=== PATIENT | male | born 1955 | race Caucasian/White ===

== ENCOUNTER 2017-03-17 10:51 | Emergency (ER) | payer BC ==
[~2017-03-17] VITALS: Ht 182.9 cm; Wt 110.0 kg
[~2017-03-17 10:51] MED LIST: AUGM875T PO; PRED20 PO
[2017-03-17 10:53] VITALS: BP 137/92; PULSE 114; RESP 16; TEMP 98.7; O2SAT 94
[2017-03-17] MEDS ORDERED: SODIUM CHLOR 0.9% 1000 ML INJ 1,000 ML IV SCH (11:24)
[2017-03-17 11:28] VITALS: O2SAT 99
[2017-03-17] MEDS ORDERED: ONDANSETRON HCL 4 MG/2 ML VIAL IVP ONE (11:30)
[2017-03-17] MEDS ORDERED: MORPHINE SULFATE 4 MG/ML INJ IV PUSH ONE (11:30)
[2017-03-17] MEDS ORDERED: SODIUM CHLORIDE 0.9% FLUSH 10 ML FLUSH IV FLUSH PRN (11:30)
--- NOTE | 2017-03-17 11:36 | PD ---
HPI Chief Complaint: Abdominal Pain Time Seen by Provider: 11:17 Travel History International Travel<30 days: No Contact w/Intl Traveler<30days: No Traveled to known affect area: No History of Present Illness HPI The patient is a 61-year-old male who presents to the emergency department for abdominal pain and abnormal outpatient CT of the abdomen and pelvis. The patient's symptoms started last week with mild perirectal pain he thought was initially hemorrhoids. The patient used sitz baths, Preparation H, and a stool softener. The perirectal pain improved, however, after using the stool softeners he developed some bilateral lower abdominal pain which eventually migrated to the right upper quadrant. The patient was seen at an outpatient urgent care center and was ordered an outpatient CT the abdomen and pelvis. The patient had a CT performed at radiology [facility] which revealed an area of ill-defined attenuation within the mesenteric fat with swirling of vessels consistent with an area of or mental fat infarct. The patient does complain of right upper quadrant abdominal pain that he describes as a "bellyache ". He denies any nausea, vomiting, or change in bowel habits. He had 2 normal bowel movements earlier today. He denies any previous abdominal surgeries. He does have a history of hypertension. [facility] Past Medical History Narrative Medical Hypertension Past Surgical History Surgical History: No Previous Surgery Social History Tobacco Use: No Allergies-Medications (Allergen,Severity, Reaction): Coded Allergies: azithromycin (Unverified Allergy, Unknown, 03/17/17) Reported Meds & Prescriptions Reported Meds & Active Scripts Active Augmentin (Amoxicillin-Clavulanate) 875-125 mg Tab 875 Mg PO BID not for use in CrCl <30 ml/min. Prednisone 20 Mg Tab 40 Mg PO DAILY Take 40 mg (2 tablets) daily for 5 days Review of Systems Except as stated in HPI: all other systems reviewed are Neg General / Constitutional: No: Fever Cardiovascular: No: Chest Pain or Discomfort Respiratory: No: Shortness of Breath Gastrointestinal: Positive: Abdominal Pain, No: Nausea, Vomiting, Diarrhea, Constipation, Changes in Bowel Habits Genitourinary: No: Dysuria Musculoskeletal: No: Myalgias, Arthralgias Physical Exam Narrative GENERAL: Awake, alert, pleasant 61-year-old male who appears his stated age and is in no acute respiratory distress. SKIN: Focused skin assessment warm/dry. HEAD: Atraumatic. Normocephalic. EYES: Pupils equal and round. No scleral icterus. No injection or drainage. ENT: No nasal bleeding or discharge. Mucous membranes pink and moist. NECK: Trachea midline. No JVD. CARDIOVASCULAR: Regular rate and rhythm. No murmur appreciated. RESPIRATORY: No accessory muscle use. Clear to auscultation. Breath sounds equal bilaterally. GASTROINTESTINAL: Abdomen soft, mild right upper quadrant tenderness, but no guarding or rigidity. Rectal: No visible external hemorrhoid. No visible blood. MUSCULOSKELETAL: No obvious deformities. No clubbing. No cyanosis. No edema. NEUROLOGICAL: Awake and alert. No obvious cranial nerve deficits. Motor grossly within normal limits. Normal speech. PSYCHIATRIC: Appropriate mood and affect; insight and judgment normal. Data Data Last Documented VS Vital Signs Date Time Temp Pulse Resp B/P (MAP) Pulse Ox O2 Delivery O2 Flow Rate FiO2 03/17/17 15:00 86 16 114/67 (83) 98 Room Air 03/17/17 10:53 98.7 Orders Orders Complete Blood Count With Diff (03/17/17 11:24) Comprehensive Metabolic Panel (03/17/17 11:24) Lipase (03/17/17 11:24) Lactic Acid (03/17/17 11:24) Iv Access Insert/Monitor (03/17/17 11:24) Ecg Monitoring (03/17/17 11:24) Oximetry (03/17/17 11:24) Morphine Inj (Morphine Inj) (03/17/17 11:30) Ondansetron Inj (Zofran Inj) (03/17/17 11:30) Sodium Chlor 0.9% 1000 Ml Inj (Ns 1000 M (03/17/17 11:24) Sodium Chloride 0.9% Flush (Ns Flush) (03/17/17 11:30) Diet Regular Basic (03/17/17 Lunch) Diet Regular Basic (03/17/17 Dinner) Labs Laboratory Tests Test 03/17/17 11:35 White Blood Count 13.9 TH/MM3 Red Blood Count 5.90 MIL/MM3 Hemoglobin 17.1 GM/DL Hematocrit 51.2 % Mean Corpuscular Volume 86.7 FL Mean Corpuscular Hemoglobin 29.0 PG Mean Corpuscular Hemoglobin Concent 33.4 % Red Cell Distribution Width 14.8 % Platelet Count 312 TH/MM3 Mean Platelet Volume 7.5 FL Neutrophils (%) (Auto) 78.0 % Lymphocytes (%) (Auto) 12.5 % Monocytes (%) (Auto) 8.1 % Eosinophils (%) (Auto) 1.0 % Basophils (%) (Auto) 0.4 % Neutrophils # (Auto) 10.9 TH/MM3 Lymphocytes # (Auto) 1.7 TH/MM3 Monocytes # (Auto) 1.1 TH/MM3 Eosinophils # (Auto) 0.1 TH/MM3 Basophils # (Auto) 0.1 TH/MM3 CBC Comment DIFF FINAL Differential Comment Blood Urea Nitrogen 12 MG/DL Creatinine 1.00 MG/DL Random Glucose 91 MG/DL Total Protein 8.2 GM/DL Albumin 3.7 GM/DL Calcium Level 9.0 MG/DL Alkaline Phosphatase 53 U/L Aspartate Amino Transf (AST/SGOT) 18 U/L Alanine Aminotransferase (ALT/SGPT) 38 U/L Total Bilirubin 1.2 MG/DL Sodium Level 136 MEQ/L Potassium Level 4.1 MEQ/L Chloride Level 103 MEQ/L Carbon Dioxide Level 25.1 MEQ/L Anion Gap 8 MEQ/L Estimat Glomerular Filtration Rate 76 ML/MIN Lactic Acid Level 0.8 mmol/L Lipase 135 U/L MDM Medical Decision Making Medical Screen Exam Complete: Yes Emergency Medical Condition: Yes Medical Record Reviewed: Yes Interpretation(s) Laboratory Tests Test 03/17/17 11:35 White Blood Count 13.9 TH/MM3 Red Blood Count 5.90 MIL/MM3 Hemoglobin 17.1 GM/DL Hematocrit 51.2 % Mean Corpuscular Volume 86.7 FL Mean Corpuscular Hemoglobin 29.0 PG Mean Corpuscular Hemoglobin Concent 33.4 % Red Cell Distribution Width 14.8 % Platelet Count 312 TH/MM3 Mean Platelet Volume 7.5 FL Neutrophils (%) (Auto) 78.0 % Lymphocytes (%) (Auto) 12.5 % Monocytes (%) (Auto) 8.1 % Eosinophils (%) (Auto) 1.0 % Basophils (%) (Auto) 0.4 % Neutrophils # (Auto) 10.9 TH/MM3 Lymphocytes # (Auto) 1.7 TH/MM3 Monocytes # (Auto) 1.1 TH/MM3 Eosinophils # (Auto) 0.1 TH/MM3 Basophils # (Auto) 0.1 TH/MM3 CBC Comment DIFF FINAL Differential Comment Blood Urea Nitrogen 12 MG/DL Creatinine 1.00 MG/DL Random Glucose 91 MG/DL Total Protein 8.2 GM/DL Albumin 3.7 GM/DL Calcium Level 9.0 MG/DL Alkaline Phosphatase 53 U/L Aspartate Amino Transf (AST/SGOT) 18 U/L Alanine Aminotransferase (ALT/SGPT) 38 U/L Total Bilirubin 1.2 MG/DL Sodium Level 136 MEQ/L Potassium Level 4.1 MEQ/L Chloride Level 103 MEQ/L Carbon Dioxide Level 25.1 MEQ/L Anion Gap 8 MEQ/L Estimat Glomerular Filtration Rate 76 ML/MIN Lactic Acid Level 0.8 mmol/L Lipase 135 U/L Differential Diagnosis Differential diagnosis includes omental fat infarct, cholecystitis, choledocholithiasis, hernia, medication side effect from stool softener, viral syndrome. Narrative Course IV was established, labs are drawn and sent, and the patient was placed on cardiac telemetry monitoring and continuous pulse oximetry monitoring. Lactic acid and white count were sent to lab. I reviewed the patient's [facility] imaging CT report which does show a focal area of mesenteric fat herniation seen superior and anterior to the dome of the liver and displacing the diaphragm superiorly. There is an area of ill-defined attenuation within the mesenteric fat with swirling of vessels consistent with an area of omental fat infarct. White count was mildly elevated at 13.9. Lactic acid is normal. The patient was evaluated by the [facility] for Dr. Meza, Dr. Meza then evaluated the patient at 3:40 PM at bedside who states the patient can follow- up as an outpatient. He was able to tolerate an oral challenge with a meal, his pain has significantly improved, he will follow up outpatient with general surgery. Diagnosis Primary Impression: Abdominal pain Qualified Codes: R10.11 - Right upper quadrant pain Additional Impression: Mesenteric infarction Referrals: Al Meza MD Patient Instructions: General Instructions Additional Instructions: [place] as needed for pain. Follow-up with Dr. Meza as directed by Dr. Meza when evaluated in the emergency department. Return if symptoms worsen or progress. Med/Other Pt SpecificInfo: Prescription(s) given Scripts Hydrocodone-Acetaminophen ([place]) 5 Mg-325 Mg Tab 1 TAB PO Q6H Y for PAIN, #12 TAB 0 Refills Prov: Jesse Sweeney MD 03/17/17 Disposition: 01 DISCHARGE HOME Condition: Stable Jesse Sweeney MD Mar 17, 2017 11:36
[2017-03-17 12:10] LABS: AUTOMATED NEUTROPHIL # 10.9 TH/MM3 (1.8-7.7); BASOPHIL # 0.1 TH/MM3 (0-0.2); BASOPHIL % 0.4 % (0.0-2.0); EOSINOPHIL # 0.1 TH/MM3 (0-0.4); HEMATOCRIT 51.2 % (39.0-51.0); HEMOGLOBIN 17.1 GM/DL (13.0-17.0); LYMPH % 12.5 % (9.0-44.0); LYMPHOCYTE # 1.7 TH/MM3 (1.0-4.8); MEAN CELL VOLUME 86.7 FL (80.0-100.0); MEAN CORPUSCULAR HGB CONC 33.4 % (32.0-36.0); MEAN PLATELET VOLUME 7.5 FL (7.0-11.0); MONO % 8.1 % (0.0-8.0); MONOCYTE # 1.1 TH/MM3 (0-0.9); PLATELET COUNT 312 TH/MM3 (150-450); RED CELL DISTRIBUTION WIDTH 14.8 % (11.6-17.2); WHITE BLOOD COUNT 13.9 TH/MM3 (4.0-11.0)
[2017-03-17 12:23] LABS: ALBUMIN 3.7 GM/DL (3.4-5.0); AST (GOT) 18 U/L (15-37); BICARBONATE 25.1 MEQ/L (21.0-32.0); BLOOD UREA NITROGEN 12 MG/DL (7-18); CHLORIDE 103 MEQ/L (98-107); GLOMERULAR FILTRATION RATE 76 ML/MIN (>89); GLUCOSE,RANDOM 91 MG/DL (74-106); LIPASE 135 U/L (73-393); SODIUM (NA) 136 MEQ/L (136-145)
[2017-03-17 12:26] LABS: ALKALINE PHOSPHATASE 53 U/L (45-117); ALT (GPT) 38 U/L (12-78); TOTAL BILIRUBIN ADULT 1.2 MG/DL (0.2-1.0); TOTAL PROTEIN 8.2 GM/DL (6.4-8.2)
[2017-03-17 15:00] VITALS: BP 114/67; PULSE 86; RESP 16; O2SAT 98
[2017-03-17] MEDS ORDERED: NORC5TAB PO (15:53)
--- NOTE | 2017-03-17 17:19 | PD.CONS ---
cc: Al Meza MD [facility] Service General Surgery Consult Requested By Dr. Sweeney Reason for Consult Evaluation of CT findings of mesenteric fat herniation Primary Care Physician No Primary Care Physician History of Present Illness This is a 61-year-old male with a past medical history of hypertension. The patient reports that starting Friday of last week he started having perirectal pain and contributed to hemorrhoids. He has had a similar type pain before with success of using a sitz bath and Preparation H. On Friday he noticed he had not had a bowel movement in several days and started to feel slightly bloated. He started taking laxatives on Friday and started having lower bilateral pelvic pain. Over the next 2 days he did not feel well and ate small , bland meals. On Friday, he developed right upper quadrant pain. Today he went to an outpatient urgent care center where a CT abdomen and pelvis was obtained which showed an focal area of mesenteric fat herniation. He was sent to the Emergency Room. He reports the pain as a dull type pain and rates it about a 3 out of 10. He was given IV morphine in the Emergency Department with complete resolution of abdominal pain. He feels hungry. A General Surgery consultation has been requested. Review of Systems Constitutional: DENIES: Fatigue, Weight loss, Change in appetite Endocrine: DENIES: Polydipsia, Polyuria, Polyphagia Eyes: DENIES: Diplopia, Eye inflammation Ears, nose, mouth, throat: DENIES: Hearing loss Respiratory: DENIES: Cough, Snoring Cardiovascular: DENIES: Palpitations Gastrointestinal: COMPLAINS OF: Abdominal pain, DENIES: Nausea, Vomiting Genitourinary: DENIES: Urinary frequency Musculoskeletal: DENIES: Joint pain Integumentary: DENIES: Abnormal pigmentation Hematologic/lymphatic: DENIES: Bruising Immunologic/allergic: DENIES: Eczema Neurologic: DENIES: Abnormal gait, Headache Psychiatric: DENIES: Confusion, Mood changes Past Family Social History Past Medical History Hypertension Past Surgical History None Reported Medications Lisinopril Testosterone therapy Allergies: Coded Allergies: azithromycin (Unverified Allergy, Unknown, 03/17/17) Family History Noncontributory Social History Denies tobacco use Denies EtOH use Denies illicit drug use From [place] --- has a second home in [place] [facility] Owns his own business Physical Exam Vital Signs Vital Signs Date Time Temp Pulse Resp B/P (MAP) Pulse Ox O2 Delivery O2 Flow Rate FiO2 03/17/17 16:03 03/17/17 15:00 86 16 114/67 (83) 98 Room Air 03/17/17 11:48 18 03/17/17 11:28 99 Room Air 03/17/17 11:19 18 03/17/17 10:53 98.7 114 16 137/92 (107) 94 Physical Exam GENERAL: 61 year old male resting in bed in no acute distress. SKIN: Warm and dry. HEAD: Atraumatic. Normocephalic. EYES: Pupils equal and round. No scleral icterus. No injection or drainage. ENT: No nasal bleeding or discharge. Mucous membranes pink and moist. NECK: Trachea midline. CARDIOVASCULAR: Regular rate and rhythm. RESPIRATORY: No accessory muscle use. Clear to auscultation. Breath sounds equal bilaterally. GASTROINTESTINAL: Abdomen soft, non-tender, nondistended. No visible scars or hernias. MUSCULOSKELETAL: Extremities without clubbing, cyanosis, or edema. No obvious deformities. NEUROLOGICAL: Awake and alert. No obvious cranial nerve deficits. Motor grossly within normal limits. Five out of 5 muscle strength in the arms and legs. Normal speech. PSYCHIATRIC: Appropriate mood and affect; insight and judgment normal. Laboratory Laboratory Tests Test 03/17/17 11:35 White Blood Count 13.9 Red Blood Count 5.90 Hemoglobin 17.1 Hematocrit 51.2 Mean Corpuscular Volume 86.7 Mean Corpuscular Hemoglobin 29.0 Mean Corpuscular Hemoglobin Concent 33.4 Red Cell Distribution Width 14.8 Platelet Count 312 Mean Platelet Volume 7.5 Neutrophils (%) (Auto) 78.0 Lymphocytes (%) (Auto) 12.5 Monocytes (%) (Auto) 8.1 Eosinophils (%) (Auto) 1.0 Basophils (%) (Auto) 0.4 Neutrophils # (Auto) 10.9 Lymphocytes # (Auto) 1.7 Monocytes # (Auto) 1.1 Eosinophils # (Auto) 0.1 Basophils # (Auto) 0.1 CBC Comment DIFF FINAL Differential Comment Blood Urea Nitrogen 12 Creatinine 1.00 Random Glucose 91 Total Protein 8.2 Albumin 3.7 Calcium Level 9.0 Alkaline Phosphatase 53 Aspartate Amino Transf (AST/SGOT) 18 Alanine Aminotransferase (ALT/SGPT) 38 Total Bilirubin 1.2 Sodium Level 136 Potassium Level 4.1 Chloride Level 103 Carbon Dioxide Level 25.1 Anion Gap 8 Estimat Glomerular Filtration Rate 76 Lactic Acid Level 0.8 Lipase 135 Result Diagram: 03/17/17 1135 03/17/17 1135 Assessment and Plan Assessment and Plan 61 year old male with abdominal pain; see in outpatient Urgent Care---CT findings of focal area of mesenteric fat herniation seen superior anterior to the dome of the liver -Complete resolution of pain on exam -Regular diet -Patient stable for DC from the Emergency Department -Follow up with Dr. Meza in about 2 weeks. Discussed Condition With Dr. Derrick Zaldivar Attending Statement Patient seen at bedside ruq pain improving, no fevers, ct with mesenteric infarct wbc elevated pt tolerated po challenge and would like to go home I discussed with patient and that he needs to return if symptoms worsen or any fevers develop he states understanding of this and states will be compliant Attestation The exam, history, and the medical decision-making described in the above note were completed with the assistance of the mid-level provider. I reviewed and agree with the findings presented. I attest that I had a [id number] encounter with the patient on the same day, and personally performed and documented my assessment and findings in the medical record. Clementina Kline Mar 17, 2017 17:19 Al Meza MD Mar 20, 2017 11:57
== END 2017-03-17 16:04 | disposition home or self-care (01) ==
LOC: NEPC 10:51
DX: R10.11 Right upper quadrant pain (principal); K55.069 Acute infarction of intestine, part and extent unspecified; K62.89 Other specified diseases of anus and rectum; I10 Essential (primary) hypertension
CPT/HCPCS: 80053; 83605; 83690; 85025; 96361; 96374; 96375; 99284; J2270; J2405; J7030